=== PATIENT | female | born 1970 | race Caucasian/White ===

== ENCOUNTER 2016-10-19 13:23 | Emergency (ER) | payer BC ==
[2016-10-19] MEDS ORDERED: Sodium Chloride 0.9% 50 ML SDV IV PRN (14:09)
[2016-10-19] MEDS ORDERED: Iopamidol 755 Mg/ML 100 ML Bottle IV SCH (14:15)
[2016-10-19] MEDS ORDERED: Iopamidol 612 MG/ML 100 ML Bottle IV SCH (15:00)
[2016-10-19 15:11] VITALS: BP 155/104
--- NOTE | 2016-10-19 20:14 | ER ---
HISTORY OF PRESENT ILLNESS: A 45-year-old lady who comes into the ER with her with complaints of a sharp hot sensation of pain involving the right posterior chest wall. This happened while she was getting ready to [place] this morning. She states that it felt like it was pushing into the chest, that lasted for just a minute or so and then the symptoms changed to a more spreading outer sensation of discomfort. The patient has not been coughing. She has not had any recent falls or injuries. She denies any nausea or vomiting. She has not been running a fever. She has not recently been sick. There have been no problems with shortness of breath or wheezing. The patient denies any previous history of a similar nature. PAST MEDICAL HISTORY: Includes Prinzmetal's angina. She is currently on Imdur, metoprolol, and a baby aspirin for this. OBJECTIVE: GENERAL APPEARANCE: The patient is awake and alert, in no obvious distress. VITAL SIGNS: Reviewed. Initial blood pressure is 174/120, pulse 106. She is afebrile. HEENT: Oral mucous membranes are moist. Tonsils not enlarged or injected. Pharynx not inflamed. NECK: Supple. LUNGS: Clear with good air exchange throughout the lung rendon. Palpation on the right posterior chest wall does reproduce some discomfort without guarding. Skin: Warm and dry. There is no swelling or redness present. CARDIAC: Heart sounds distinct without murmurs. ABDOMEN: Soft and nontender. SKIN: Warm and dry. Blood pressure was rechecked with a second reading of 145/106. INITIAL WORKUP: An EKG was obtained, showing a normal sinus rhythm. LABORATORY DATA: Labs include a CBC which is normal. D-dimer is normal at 142. CMP normal. Troponin normal. Chest x-ray was obtained. I do not see any infiltrate or pneumothorax. At this point, a chest CT was done with contrast, the radiologist results show a vague nonspecific 5 mm density in the left upper lobe with a ground-glass appearance. The patient states this is not new, she has had a lump in this site before. DIAGNOSIS: Chest pain, appearing to be in the chest wall. TREATMENT PLAN: I advised patient to use ibuprofen and/or Tylenol. She does not want anything stronger. Activity should be as tolerated. I want the patient to follow up in the clinic next week with her primary care provider for a recheck. CRS/MODL /[id number]
--- NOTE | 2016-10-19 21:17 | CR ---
DATE OF SERVICE: 10/19/2016 CLINICAL DATA: Chest wall pain. PORTABLE CHEST Comparison is made to a prior exam dated 07/29/2015. The heart size is normal. The lungs are clear. No changes from the prior exam. IMPRESSION: No evidence of acute intrathoracic disease. [id number] [facility]
--- NOTE | 2016-10-19 21:22 | CT ---
DATE OF SERVICE: 10/19/2016 CLINICAL DATA: Posterior chest wall pain. ENHANCED CHEST CT Multislice acquisition through the chest with IV contrast was performed. No priors. Negative for PE. No pneumothorax. No pleural effusions. No aortic aneurysm or dissection. There are minimal atelectatic change in the dependent portion of both lungs. There is a vague subtle subpleural ground glass opacity in the left upper lobe laterally. This is nonspecific in appearance. Followup should be considered. The lungs are otherwise clear. The heart size is normal. No pericardial effusion. No hilar or mediastinal adenopathy. There are numerous sharply transcribed fluid density lesions within the liver consistent in appearance with benign cysts. IMPRESSION: No acute abnormalities. Other findings as discussed above. [id number] [facility]
== END 2016-10-19 15:50 | disposition home or self-care (01) ==
LOC: LB.ED 13:23
DX: R07.9 Chest pain, unspecified (principal)
CPT/HCPCS: 36415; 71010; 71260; 80053; 84484; 85025; 85379; 93005; 99285; Q9967

== ENCOUNTER 2016-12-24 11:12 | Emergency (ER) | payer BC ==
[2016-12-24] MEDS ORDERED: cloNIDine 0.1 MG Tab PO ONE (11:25)
[2016-12-24] MEDS ORDERED: cloNIDine 0.1 MG Tab ONE (11:26)
--- NOTE | 2016-12-24 11:34 | EDM.PDOC ---
ED HPI GENERAL MEDICAL PROBLEM - General Time Seen by Provider: 12/24/16 11:15 Source of Information: Reports: Patient History Limitations: Reports: No Limitations - History of Present Illness INITIAL COMMENTS - FREE TEXT/NARRATIVE: According to patient she woke in the morning today and she took her metoprolol ER 100mg around 4 PM. She claims later in the morning she did not feel well,a nd went and looked in the mirror and felt like her right eyelid was drooping. No facial droop, no slurred speech, no deviation of mouth.She had not tingling or numbness. No weakness in the extremities. No pain, nausea or vomiting. Was able to walk without discomfort. She took picture of her face and sent it to her mother who is a nurse and she was recommended to go to the emergency room. Pt claims she has been having headache now. No other complaints. Onset: Today Onset Date: 12/24/16 Onset Time: 06:00 Location: Reports: Head Quality: Reports: Ache Severity: Mild Improves with: Reports: None Worsens with: Reports: None Associated Symptoms: Denies: Confusion, Chest Pain, Cough, Fever/Chills, Nausea/ Vomiting, Rash, Seizure, Shortness of Breath, Syncope, Weakness Left Headache Pain Score (Numeric/FACES): 5 - Related Data Allergies Allergy/AdvReac Type Severity Reaction Status Date / Time butorphanol tartrate Allergy Anaphylactic Verified 12/24/16 11:29 [From Stadol] Shock fructose Allergy Stomach Verified 12/24/16 11:29 Upset lisinopril Allergy Cough Verified 12/24/16 11:29 Home Meds: Home Meds Aspirin [Ricky Chewable Aspirin] 81 mg PO DAILY 07/11/15 [History] Isosorbide Mononitrate [Imdur] 5 mg PO DAILY 11/19/15 [History] Metoprolol Succinate 50 mg PO DAILY 11/19/15 [History] Past Medical History HEENT History: Reports: Impaired Vision Cardiovascular History: Reports: Arrhythmia, High Cholesterol, Other (See Below) Other Cardiovascular History: Coronary Artery Spasms Respiratory History: Reports: Bronchitis, Recurrent Gastrointestinal History: Reports: GERD Genitourinary History: Reports: None 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: Musculoskeletal History: Reports: Fracture Oncologic (Cancer) History: Reports: Cervix, Uterine - Infectious Disease History Infectious Disease History: Reports: Chicken Pox, Shingles - Past Surgical History GI Surgical History: Reports: Colonoscopy Female Surgical History: Reports: Hysterectomy Musculoskeletal Surgical History: Reports: None Social & Family History - Family History Family Medical History: Noncontributory Cardiac: Reports: Hypertension, [place], Pacemaker - Tobacco Use Smoking Status *Q: Never Smoker - Recreational Drug Use Recreational Drug Use: No ED ROS GENERAL - Review of Systems Review Of Systems: See Below Constitutional: Denies: Fever, Chills HEENT: Denies: Sinus Problem, Throat Pain, Throat Swelling, Vision Change Respiratory: Denies: Cough, Sputum Cardiovascular: Denies: Chest Pain, Lightheadedness, Syncope GI/Abdominal: Denies: Abdominal Pain, Nausea, Vomiting : Denies: Flank Pain Musculoskeletal: Denies: Joint Pain, Joint Swelling Skin: Denies: Bruising, Pruritis, Rash Neurological: Reports: Headache. Denies: Confusion, Dizziness, Numbness, Paresthesia, Seizure, Syncope, Tingling, Tremors, Trouble Speaking, Difficulty Walking, Weakness, Change in Speech, Gait Disturbance Psychiatric: Denies: Agitation, Anxiety ED EXAM, GENERAL - Physical Exam Exam: See Below Exam Limited By: No Limitations General Appearance: Alert, WD/WN, No Apparent Distress Eye Exam: Bilateral Eye: EOMI, PERRL Ears: Normal External Exam, Normal Canal, Hearing Grossly Normal, Normal TMs Ear Exam: Bilateral Ear: Auricle Normal, Canal Normal, TM normal Nose: Normal Inspection, Normal Mucosa, No Blood Throat/Mouth: Normal Inspection, Normal Lips, Normal Teeth, Normal Gums, Normal Oropharynx, Normal Voice, No Airway Compromise Head: Atraumatic, Normocephalic Neck: Normal Inspection, Supple, Non-Tender, Full Range of Motion Respiratory/Chest: No Respiratory Distress, Lungs Clear, Normal Breath Sounds, No Accessory Muscle Use, Chest Non-Tender Cardiovascular: Normal Peripheral Pulses, Regular Rate, Rhythm, No Edema, No Gallop, No JVD, No Murmur, No Rub Peripheral Pulses: 2+: Carotid (L), Carotid (R), Radial (L), Radial (R) GI/Abdominal: Normal Bowel Sounds, Soft, Non-Tender, No Organomegaly, No Distention, No Abnormal Bruit, No Mass Neurological: Alert, Oriented, CN II-XII Intact, Normal Cognition, Normal Gait, Normal Reflexes, No Motor/Sensory Deficits, Other (Neurologic exam is normal. No facial palsy seen or drooping of the eyelid.) Skin Exam: Warm, Intact Course - Vital Signs Text/Narrative:: Pt's neurological exam is normal. I do not see dropping of the eyelids or facial palsy. She has good strength in the extremities and able to ambulate. Her BP is elevated at 181/104mmhg. She has taken her meds today. She did get clonidine 0.1mg oral. Considering her history, will get Ct Head, CBC and CMP. She appears clinically stable at this time. Pt's CT head is negative. Her CBC and CMP are normal. She does not have any neurological deficits. Pt reassured that she does not have stroke. Her BP is down to 149/70mmhg. Advised her to rest. closely monitor her BP and keep it under 140/90mmhg and followup in the clinic. Last Recorded V/S: Last Vital Signs Temp 98.9 F 12/24/16 11:15 Pulse 84 12/24/16 11:53 Resp 16 12/24/16 11:15 BP 149/97 H 12/24/16 11:53 Pulse Ox 100 12/24/16 11:53 - Orders/Labs/Meds Orders: Active Orders 24 hr Category Date Time Status Head wo Cont [CT] Stat Exams 12/24/16 11:27 Ordered COMPREHENSIVE METABOLIC PN,CMP [CHEM] Stat Lab 12/24/16 11:26 Ordered Labs: Laboratory Tests 12/24/16 Range/Units 11:26 WBC 4.3 D (4.0-11.0) K/uL RBC 4.61 (3.80-5.80) M/uL Hgb 13.9 (11.5-16.5) g/dL Hct 41.4 (37.0-47.0) % MCV 90 (76-96) fL MCH 30.2 (27.0-32.0) pg MCHC 33.6 (31.0-35.0) g/dL RDW 12.0 (11.0-16.0) % Plt Count 216 (150-500) K/uL MPV 9.2 (6.0-10.0) fL Neut % (Auto) 59.3 (45.0-70.0) % Lymph % (Auto) 31.9 (20.0-40.0) % [place] % (Auto) 7.4 (3.0-10.0) % Eos % (Auto) 0.7 L (1.0-5.0) % Baso % (Auto) 0.7 H (0.0-0.5) % Neut # (Auto) 2.57 (2.00-7.50) K/uL Lymph # (Auto) 1.38 L (1.50-4.00) K/uL [place] # (Auto) 0.32 (0.20-0.80) K/uL Eos # (Auto) 0.03 L (0.04-0.40) K/uL Baso # (Auto) 0.03 (0.02-0.10) K/uL Meds: Medications Discontinued Medications Generic Name Dose Route Start Last Admin Trade Name Rachel PRN Reason Stop Dose Admin Clonidine HCl 0.1 mg 12/24/16 11:25 12/24/16 11:26 Catapres PO 12/24/16 11:26 0.1 mg ONETIME ONE Administration Clonidine HCl Confirm 12/24/16 11:26 12/24/16 11:27 Catapres Administered 12/24/16 11:27 Not Given Dose 0.1 mg .ROUTE .STK-MED ONE Departure - Departure Time of Disposition: 12:30 Disposition: Home, Self-Care 01 Clinical Impression: Headache - Discharge Information Additional Instructions: Pt's CT head is negative. Her CBC and CMP are normal. She does not have any neurological deficits. Pt reassured that she does not have stroke. Her BP is down to 149/70mmhg. Advised her to rest. closely monitor her BP and keep it under 140/90mmhg and followup in the clinic. - Problem List & Annotations (1) Headache SNOMED Code(s): 30986274 Code(s): R51 - HEADACHE Status: Acute Current Visit: Yes - Problem List Review Problem List Initiated/Reviewed/Updated: Yes - My Orders Last 24 Hours: My Active Orders 12/24/16 11:26 COMPREHENSIVE METABOLIC PN,CMP [CHEM] Stat 12/24/16 11:27 Head wo Cont [CT] Stat - Assessment/Plan Last 24 Hours: My Active Orders 12/24/16 11:26 COMPREHENSIVE METABOLIC PN,CMP [CHEM] Stat 07/12/17 11:27 Head wo Cont [CT] Stat Assessment:: Headache Plan: Pt's neurological exam is normal. I do not see dropping of the eyelids or facial palsy. She has good strength in the extremities and able to ambulate. Her BP is elevated at 181/104mmhg. She has taken her meds today. She did get clonidine 0.1mg oral. Considering her history, will get Ct Head, CBC and CMP. She appears clinically stable at this time. Pt's CT head is negative. Her CBC and CMP are normal. She does not have any neurological deficits. Pt reassured that she does not have stroke. Her BP is down to 149/70mmhg. Advised her to rest. closely monitor her BP and keep it under 140/90mmhg and followup in the clinic.
[2016-12-24 12:47] VITALS: BP 126/87
--- NOTE | 2016-12-24 15:18 | CT ---
DATE OF SERVICE: 12/24/16 CLINICAL DATA: Headache UNENHANCED BRAIN CT: Multislice acquisition through the brain without IV contrast was performed. No priors. No masses or mass effect. No intracranial hemorrhage. No evidence of acute or subacute infarct. No osseous abnormalities. IMPRESSION: Normal exam. [id number] [facility]
== END 2016-12-24 12:38 | disposition home or self-care (01) ==
LOC: LB.ED 11:12
DX: R51 Headache (principal); H54.7 Unspecified visual loss; E78.00 Pure hypercholesterolemia, unspecified; K21.9 Gastro-esophageal reflux disease without esophagitis; Z90.710 Acquired absence of both cervix and uterus; Z88.8 Allergy status to other drugs, medicaments and biological substances; Z79.82 Long term (current) use of aspirin; Z79.899 Other long term (current) drug therapy
CPT/HCPCS: 36415; 70450; 80053; 85025; 99284; A9270

== ENCOUNTER 2017-02-11 18:29 | Emergency (ER) | payer BC ==
--- NOTE | 2017-02-11 19:37 | EDM.PDOC ---
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) Location: Reports: Upper Extremity, Right, Lower Extremity, Left Quality: Reports: Ache, Throbbing Severity: Moderate Improves with: Reports: None Worsens with: Reports: None Associated Symptoms: Reports: No Other Symptoms - Related Data Allergies Allergy/AdvReac Type Severity Reaction Status Date / Time butorphanol tartrate Allergy Severe Anaphylactic Verified 02/11/17 19:20 [From Stadol] Shock fructose Allergy Intermediate Stomach Verified 02/11/17 19:19 Upset lisinopril Allergy Cough Verified 02/11/17 19:20 Home Meds: Home Meds Aspirin [Ricky Chewable Aspirin] 81 mg PO DAILY 07/11/15 [History] Isosorbide Mononitrate [Imdur] 5 mg PO DAILY 11/19/15 [History] Metoprolol Succinate 50 mg PO DAILY 11/19/15 [History] Past Medical History HEENT History: Reports: Impaired Vision Cardiovascular History: Reports: Arrhythmia, High Cholesterol, Other (See Below) Other Cardiovascular History: Coronary Artery Spasms Respiratory History: Reports: Bronchitis, Recurrent Gastrointestinal History: Reports: GERD Genitourinary History: Reports: None [employer]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: Musculoskeletal History: Reports: Fracture Neurological History: Reports: Concussion Psychiatric History: Reports: Depression Oncologic (Cancer) History: Reports: Cervix, Uterine - Infectious Disease History Infectious Disease History: Reports: Chicken Pox, Shingles - Past Surgical History GI Surgical History: Reports: Colonoscopy Female Surgical History: Reports: Hysterectomy Musculoskeletal Surgical History: Reports: None Social & Family History - Family History Family Medical History: Noncontributory Cardiac: Reports: Hypertension, [place], Pacemaker - Tobacco Use Smoking Status *Q: Never Smoker Second Hand Smoke Exposure: No - Caffeine Use Caffeine Use: Reports: Coffee - Recreational Drug Use Recreational Drug Use: No Review of Systems - Review of Systems Review Of Systems: ROS reveals no pertinent complaints other than HPI. ED EXAM, GENERAL - Physical Exam Exam: See Below (right elbow is tender, slight swelling, limited rom, left knee is ecchymotic, swelling, tender) Exam Limited By: No Limitations General Appearance: Alert, WD/WN, No Apparent Distress Head: Atraumatic, Normocephalic Neck: Normal Inspection, Supple, Full Range of Motion Respiratory/Chest: No Respiratory Distress, Lungs Clear, Normal Breath Sounds Cardiovascular: Regular Rate, Rhythm Peripheral Pulses: 4+: Radial (L), Radial (R), Posterior Tibial (L), Dorsalis Pedis (L) Extremities: Joint Swelling, Leg Pain, Limited Range of Motion, Redness Neurological: Alert, Oriented, CN II-XII Intact Psychiatric: Normal Affect, Normal Mood Skin Exam: Warm, Dry, Ecchymosis (left knee) Course - Orders/Labs/Meds Orders: Active Orders 24 hr Category Date Time Status Elbow 2V Rt [CR] Stat Exams 02/11/17 19:30 Taken Knee 1V or 2V Lt [CR] Stat Exams 02/11/17 19:27 Taken - Radiology Interpretation Free Text/Narrative:: xray of the right elbow shows no fx or dislocation, mild effusion xray of the left knee shows no evidence of fx or dislocation. Some soft tissue swelling. Departure - Departure Time of Disposition: 20:45 Disposition: Home, Self-Care 01 Condition: Fair Clinical Impression: Contusion of right elbow, Contusion of left knee - Discharge Information Instructions: Knee Sprain, [id number]-Errl, Elbow Fracture, Simple Referrals: PCP,None [Primary Care Provider] - Forms: ED Department Discharge - Problem List & Annotations (1) Contusion of left knee SNOMED Code(s): 75937816, 932348541 Code(s): S80.02XA - CONTUSION OF LEFT KNEE, INITIAL ENCOUNTER Status: Acute Priority: Medium Current Visit: Yes Qualifiers: Encounter type: initial encounter Qualified Code(s): S80.02XA - Contusion of left knee, initial encounter (2) Contusion of right elbow SNOMED Code(s): 72891648 Code(s): S50.01XA - CONTUSION OF RIGHT ELBOW, INITIAL ENCOUNTER Status: Acute Priority: Medium Current Visit: Yes Qualifiers: Encounter type: initial encounter Qualified Code(s): S50.01XA - Contusion of right elbow, initial encounter - Problem List Review Problem List Initiated/Reviewed/Updated: Yes - My Orders Last 24 Hours: My Active Orders 02/11/17 19:27 Knee 1V or 2V Lt [CR] Stat 02/11/17 19:30 Elbow 2V Rt [CR] Stat - Assessment/Plan Last 24 Hours: My Active Orders 02/11/17 19:27 Knee 1V or 2V Lt [CR] Stat 02/11/17 19:30 Elbow 2V Rt [CR] Stat Plan: RICE tylenol for pain if still having significant pain next week, FU with PCP
[2017-02-11 22:53] VITALS: BP 167/78
--- NOTE | 2017-02-11 23:01 | CR ---
DATE OF SERVICE: 03/14/2017 CLINICAL DATA: Fall. LEFT KNEE There is diffuse osteopenia. No acute fracture or dislocation. No lytic or blastic bone lesions. No joint effusion. [id number] [facility]
--- NOTE | 2017-02-11 23:05 | CR ---
DATE OF SERVICE: 02/11/2017 CLINICAL DATA: Fall. RIGHT ELBOW There are positive anterior and posterior fat pad signs consistent with a joint effusion or hemarthrosis. I do not see a definite fracture, however with a history of trauma and positive fat pad signs an occult fracture is suspected. Followup imaging or possible CT scan or MRI may be helpful. [id number] [facility]
== END 2017-02-11 20:20 | disposition home or self-care (01) ==
LOC: LB.ED 18:29
DX: S50.01XA Contusion of right elbow, initial encounter (principal); S80.02XA Contusion of left knee, initial encounter; I25.10 Atherosclerotic heart disease of native coronary artery without angina pectoris; E78.00 Pure hypercholesterolemia, unspecified; K21.9 Gastro-esophageal reflux disease without esophagitis; Z90.710 Acquired absence of both cervix and uterus; Z79.82 Long term (current) use of aspirin; Z79.899 Other long term (current) drug therapy; Z88.8 Allergy status to other drugs, medicaments and biological substances; X58.XXXA Exposure to other specified factors, initial encounter
CPT/HCPCS: 73070-RT; 73560-LT; 99283